=== PATIENT | born 1990 | race Two or more races ===

== ENCOUNTER → 2023-11-01 | Emergency (ER) | payer OTHER ==
[~2023-11-01] VITALS: Ht 162.6 cm; Wt 77.1 kg
[2023-11-01 20:43] LABS: HEMATOCRIT 45.7 % (48.0-68.0); HEMOGLOBIN 15.9 g/dL (16.5-21.5); MEAN CELL VOLUME 82.5 fL (80.0-100.00); MEAN CORPUSCULAR HEMOGLOBIN 28.7 pg (27.00-32.0); MEAN CORPUSCULAR HGB CONC 34.8 g/dl (32.0-36.0); PLATELET COUNT 272 K/uL (150-450); RED BLOOD COUNT 5.54 M/uL (4.00-6.00); RED CELL DISTRIBUTION WIDTH 13.5 % (11.5-14.5)
[2023-11-01 21:40] LABS: CALCIUM 9.4 mg/dL (8.5-10.1); CREATININE SERUM 1.15 mg/dL (0.55-1.30); GFR 74.17; POTASSIUM 3.61 mEq/L (3.5-5.1)
== END | disposition home or self-care (01) ==
LOC: ER 19:28
PROVIDERS: Nurse Practitioner Family
DX: N64.4 Mastodynia (principal); R53.1 Weakness; Z20.822 Contact with and (suspected) exposure to COVID-19